=== PATIENT | female | born 1990 | race Caucasian/White ===

== ENCOUNTER 2019-07-16 18:58 | Emergency (ER) | payer BC, OTHER ==
[~2019-07-16] VITALS: Ht 160 cm; Wt 181.4 kg
== END 2019-07-16 21:49 | disposition home or self-care (01) ==
LOC: ED 18:58
DX: S93.402A Sprain of unspecified ligament of left ankle, initial encounter (principal); X50.1XXA Overexertion from prolonged static or awkward postures, initial encounter; Y93.89 Activity, other specified; Y92.89 Other specified places as the place of occurrence of the external cause; Y99.8 Other external cause status

== ENCOUNTER 2020-06-29 21:01 | Inpatient (IN) | payer BC ==
[~2020-06-29] VITALS: Ht 162.5 cm; Wt 182.9 kg
[2020-06-29 21:16] VITALS: BP 149/90
[2020-06-29] MEDS ORDERED: MOVE FREE ULTR1 EAC2 PO (21:20)
[2020-06-29] MEDS ORDERED: SYNTHROID,LEV125 MCG PO (21:20)
[2020-06-29 22:39] LABS: BASO % 0.4 % (0.0-1.0); EOS % 0.6 % (1.0-4.0); HEMATOCRIT 42.8 % (37.0-47.0); LYMPH # 2.2 10*3/uL (1.3-4.4); LYMPH % 45.6 % (27.0-41.0); MEAN CELL VOLUME 82.1 fl (81.0-99.0); MEAN CORPUSCULAR HGB 25.7 pg (27.0-31.0); MEAN CORPUSCULAR HGB CONC 31.3 g/dl (33.0-37.0); MEAN PLATELET VOLUME 9.7 fl (9.6-12.3); MONO # 0.5 10*3/uL (0.1-1.0); MONO % 10.8 % (3.0-9.0); NEUT % 40.8 % (47.0-73.0); PLATELET COUNT AUTOMATED 266 10*3/uL (130-400); RED BLOOD COUNT 5.21 10*6/uL (4.10-5.10); RED CELL DISTRI WIDTH 15.9 % (0-14.5); WHITE BLOOD COUNT 4.9 10*3/uL (4.8-10.8)
[2020-06-29 23:04] LABS: ALKALINE PHOSPHATASE 107 U/L (45-117); BUN 7 mg/dl (7-24); CHLORIDE 108 mmol/L (98-107); CREATININE 0.82 mg/dL (0.55-1.02); POTASSIUM 3.9 mmol/L (3.5-5.1); SGOT/AST 78 IU/L (3-35); SGPT/ALT 109 U/L (12-78); SODIUM 139 mmol/L (136-145); TOTAL PROTEIN 8.4 gm/dL (6.4-8.2)
[2020-06-30] VITALS: BP 137/78
--- NOTE | 2020-06-30 03:15 | NUR ---
TRIED TO CALL INPATIENT NURSE TO SEE IF THEY ARE READY FOR PT WITH NO ANSWER. WILL TRY AGAIN IN 15 MINUTES
--- NOTE | 2020-06-30 03:45 | NUR ---
PT ON EDGE OF BED WITH EMESIS AND DRY HEAVING. PT DIAPHORETIC. PROVIDED COLD WASH CLOTHES.
[2020-06-30 04:27] VITALS: BP 137/78
--- NOTE | 2020-06-30 04:27 | NUR ---
A 30, admitted to , under the services of WILLIAMS Charles DO with a diagnosis of COVID 19. MULTIFOCAL PNEUMONIA. Chief complaint is SOB,FEVER,DAIRRHEA. Patient arrived via stretcher from ER. Monitor applied. Initial assessment completed. Vital signs taken and recorded. WILLIAMS CHARLES DO notified of admission to the unit. Orders received. See assessment for past medical history, medications and allergies. Patient and/or family oriented to unit. [facility] visitation policy reviewed. Clothing/patient valuable form completed. VADIM CADENA
--- NOTE | 2020-06-30 04:30 | NUR ---
PATIENT PULSE OX 88-91% ON RA. ENCOURAGED PATIENT TO WEAR 2L NASAL CANNULA. PATIENT STATED I DONT THINK I NEED THAT RIGHT NOW AND WILL PUT IT ON IF I FEEL I NEED IT. THIS NURSE AGAIN ENCOURAGED AND EXPLAINED TO PATIENT THAT SHE SHOULD WEAR IT. TURNED ON OXYGEN TO 2L AND LEFT NASAL CANNULA BESIDE PATIENT. WILL CONTINUE TO MONITOR.
[2020-06-30] MEDS ORDERED: VITAMIN D350 MCG PO (05:08)
[2020-06-30 06:33] LABS: BASO % 0.4 % (0.0-1.0); EOS % 0.4 % (1.0-4.0); HEMATOCRIT 42.7 % (37.0-47.0); LYMPH # 1.2 10*3/uL (1.3-4.4); LYMPH % 17.6 % (27.0-41.0); MEAN CELL VOLUME 81.8 fl (81.0-99.0); MEAN CORPUSCULAR HGB 25.3 pg (27.0-31.0); MEAN CORPUSCULAR HGB CONC 30.9 g/dl (33.0-37.0); MEAN PLATELET VOLUME 9.8 fl (9.6-12.3); MONO # 0.3 10*3/uL (0.1-1.0); MONO % 4.8 % (3.0-9.0); NEUT # 5.1 10*3/uL (2.3-7.9); NEUT % 75.1 % (47.0-73.0); PLATELET COUNT AUTOMATED 285 10*3/uL (130-400); RED BLOOD COUNT 5.22 10*6/uL (4.10-5.10); WHITE BLOOD COUNT 6.9 10*3/uL (4.8-10.8)
[2020-06-30 06:38] LABS: ALBUMIN 3.1 gm/dl (3.1-4.5); ALKALINE PHOSPHATASE 107 U/L (45-117); BUN 8 mg/dl (7-24); CHLORIDE 108 mmol/L (98-107); CHOLESTEROL 104 mg/dL (<200); HDL CHOLESTEROL 36 mg/dl (40-60); LDH 243 U/L (84-246); LDL CHOLESTEROL 54 mg/dL (9-159); SGOT/AST 63 IU/L (3-35); SGPT/ALT 109 U/L (12-78); SODIUM 137 mmol/L (136-145); TRIGLYCERIDES 72 mg/dl (<150); VLDL CHOLESTEROL 14 mg/dL (6-40)
[2020-06-30 06:46] LABS: FREE T4 1.16 ng/dl (0.76-1.46); TOTAL PROTEIN 8.4 gm/dL (6.4-8.2)
[2020-06-30 09:00] VITALS: BP 123/64
[2020-06-30 09:15] LABS: ABG BASE EXCESS -2.1 mmol/L (-2.0-2.0); ARTERIAL BLOOD GAS PH 7.373 (7.35-7.45)
[2020-06-30 09:17] LABS: ACT PARTIAL THROMBO TIME 27.5 SECONDS (20.0-32.1); INTERNATIONAL NORM RATIO 0.9 (2.0-3.5)
[2020-06-30 09:35] LABS: FERRITIN 83.2 ng/mL (10.0-291.0); VITAMIN D, 25-HYDROXY 37.4 ng/mL (30-100)
[2020-06-30 12:00] VITALS: BP 116/61
[2020-06-30 16:00] VITALS: BP 130/85
[2020-06-30 20:00] VITALS: BP 133/78
[2020-07-01] VITALS: BP 137/71
[2020-07-01 06:47] LABS: BASO % 0.3 % (0.0-1.0); HEMATOCRIT 42.9 % (37.0-47.0); LYMPH # 2.2 10*3/uL (1.3-4.4); MEAN CELL VOLUME 82.3 fl (81.0-99.0); MEAN CORPUSCULAR HGB 25.9 pg (27.0-31.0); MEAN CORPUSCULAR HGB CONC 31.5 g/dl (33.0-37.0); MEAN PLATELET VOLUME 10.2 fl (9.6-12.3); MONO % 10.6 % (3.0-9.0); NEUT # 5.9 10*3/uL (2.3-7.9); NEUT % 63.9 % (47.0-73.0); PLATELET COUNT AUTOMATED 319 10*3/uL (130-400); RED BLOOD COUNT 5.21 10*6/uL (4.10-5.10); WHITE BLOOD COUNT 9.2 10*3/uL (4.8-10.8)
[2020-07-01 07:09] LABS: ALBUMIN 3.2 gm/dl (3.1-4.5); ALKALINE PHOSPHATASE 99 U/L (45-117); BUN 9 mg/dl (7-24); CHLORIDE 109 mmol/L (98-107); CREATININE 0.81 mg/dL (0.55-1.02); LDH 211 U/L (84-246); POTASSIUM 4.1 mmol/L (3.5-5.1); SGOT/AST 40 IU/L (3-35); SGPT/ALT 91 U/L (12-78); SODIUM 138 mmol/L (136-145); TOTAL PROTEIN 8.5 gm/dL (6.4-8.2)
[2020-07-01 08:00] VITALS: BP 138/66
--- NOTE | 2020-07-01 10:00 | NUR ---
PT RELAXED AT THIS TIME - NO S/S DISTRESS NOTED. ON 2L NC. SOB W/ EXERTION BUT DENIES AT REST. LUNGS CLEAR T/O. DENIES NEEDS. CALL LIGHT IN REACH.
[2020-07-01 12:00] VITALS: BP 125/64
[2020-07-01 16:00] VITALS: BP 142/74
--- NOTE | 2020-07-01 19:27 | NUR ---
24 HR CHART CHECK COMPLETE.
[2020-07-01 20:00] VITALS: BP 123/70
[2020-07-02] VITALS: BP 124/87
[2020-07-02 08:00] VITALS: BP 130/74
--- NOTE | 2020-07-02 08:00 | NUR ---
PATIENT SITTING UP IN BED. NO DISTRESS NOTED. POX 97% VIA 2LNC. PT DENIES ANY SOB AT REST. WILL CONTINUE TO MONITOR. VSS. CALL LIGHT WITHIN REACH.
--- NOTE | 2020-07-02 09:31 | NUR ---
Hunter in to talk to patient. Patient states lives at home with . There are 17 steps in the home. Physician: JULIA CONCEPCION [facility] Home health services: NONE Patient's level of ADLs: INDEPENDENT Patient has working utilities: YES DME: CPAP/[facility] Follow-up physician's appointment after d/c: WILL BE MADE BY RN HOSPITALIST COORDINATOR Does patient want to access PORTAL?: NO Discharge plan : THEATRE INSTRUCTOR SPOKE WITH PATIENT AT BEDSIDE. PATIENT RESIDES AT HOME WITH . PATIENT IS INDEPENDENT WITH ADLS/IADLS. PATIENT DRIVES/WORKS. PATIENT DOES USE A CPAP AT NIGHT THROUGH [facility]. [place] IS CURRENTLY ON 2L OXYGEN, BUT NONE AT HOME. PATIENT DOES HAVE [employer] INSURANCE AND IT HAS BEEN UPDATED WITH REGISTRATION. PATIENT WILL HAVE TRANSPORTATION AT DISCHARGE. HER PLAN IS TO RETURN HOME. CASE MANAGEMENT TO FOLLOW. [facility]
[2020-07-02 12:00] VITALS: BP 117/67
--- NOTE | 2020-07-02 15:08 | NUR ---
Patient assessed for home o2. Spo2 98% at rest on 2 l/m hr 56, after 10 minutes on room air Spo2 remained unchanged at 98%. Patient ambulated on room air, Spo2 ranged from 95%-98% during ambulation, hr ranged from 56-64. post ambulation at rest Spo2 98%. Patient did not qualify for o2, RN notified.
[2020-07-02 16:00] VITALS: BP 130/80
[2020-07-02 20:00] VITALS: BP 137/84
[2020-07-03] VITALS: BP 127/83
[2020-07-03 08:00] VITALS: BP 127/62
--- NOTE | 2020-07-03 10:48 | NUR ---
AD COPY WRITER SPOKE WITH THE PATIENT VIA PHONE. PATIENT STATES SHE HAS NO NEEDS AT THIS TIME. SHE DID EXPRESS CONCERN THAT HER MOM IS SET TO TRANSPORT HER HOME, BUT IS GOING TO BE HEADING TO WORK SOON AND WILL NOT GET OFF UNTIL 9PM THIS EVENING. PATIENT STATES HER IS ON A 24HR SHIFT AND CANNOT ASSIST WITH TRANSPORTATION. AD COPY WRITER SPOKE WITH LELIA OMALLEY WHO HAS NOT ROUNDED YET AND SHE IS AWARE OF THIS CONCERN. LITA INFORMED THE [place] OF TRANSPORTATION BEING LATE THIS EVENING IF PATIENT IS TO BE DISCHARGED TODAY.
[2020-07-03 12:00] VITALS: BP 115/69
[2020-07-03] MEDS ORDERED: SYNTHROID,LEV112 MCG PO (12:45)
[2020-07-03] MEDS ORDERED: SYNTHROID137 MCG PO (12:45)
[2020-07-03] MEDS ORDERED: DECADRON4 MG PO (12:49)
--- NOTE | 2020-07-03 15:30 | NUR ---
DISCHARGE INSTRUCTIONS REVIEWED. HEPLOCK AND BATTER OUT DC'D. PRESCRIPTIONS DISCUSSED.
--- NOTE | 2020-07-03 16:14 | NUR ---
PT DISCHARGED AT THIS TIME VIA WHEELCHAIR TO PRIVATE CAR.
== END 2020-07-03 16:14 | disposition home or self-care (01) | DRG 177 ==
LOC: ED 21:01 → EDHOLD 06-30 02:17 → 4E 06-30 02:17
PROVIDERS: Emergency Medicine; Internal Medicine; Student in an Organized Health Care Education/Training Program; ADMIT Internal Medicine; ATTEND Internal Medicine
DX: U07.1 COVID-19 (principal); J96.01 Acute respiratory failure with hypoxia; J18.9 Pneumonia, unspecified organism; E44.0 Moderate protein-calorie malnutrition; Z68.44 Body mass index [BMI] 60.0-69.9, adult; E66.01 Morbid (severe) obesity due to excess calories; E03.9 Hypothyroidism, unspecified; E87.8 Other disorders of electrolyte and fluid balance, not elsewhere classified; R74.01 Elevation of levels of liver transaminase levels; R73.9 Hyperglycemia, unspecified; Z82.49 Family history of ischemic heart disease and other diseases of the circulatory system

== ENCOUNTER 2021-09-01 01:08 | Emergency (ER) | payer BC ==
[~2021-09-01 01:08] MED LIST: DECADRON4 MG PO; MOVE FREE ULTR1 EAC2 PO; SYNTHROID,LEV112 MCG PO; SYNTHROID,LEV125 MCG PO; SYNTHROID137 MCG PO; VITAMIN D350 MCG PO
[2021-09-01 01:41] LABS: BASO % 0.3 % (0.0-1.0); EOS # 0.2 10*3/uL (0.0-0.4); EOS % 1.2 % (1.0-4.0); HEMATOCRIT 42.6 % (37.0-47.0); LYMPH # 2.9 10*3/uL (1.3-4.4); LYMPH % 20.8 % (27.0-41.0); MEAN CELL VOLUME 83.2 fl (81.0-99.0); MEAN CORPUSCULAR HGB 26.6 pg (27.0-31.0); MEAN CORPUSCULAR HGB CONC 31.9 g/dl (33.0-37.0); MEAN PLATELET VOLUME 9.4 fl (9.6-12.3); MONO % 6.8 % (3.0-9.0); NEUT # 9.9 10*3/uL (2.3-7.9); NEUT % 70.3 % (47.0-73.0); PLATELET COUNT AUTOMATED 400 10*3/uL (130-400); RED BLOOD COUNT 5.12 10*6/uL (4.10-5.10); RED CELL DISTRI WIDTH 15.9 % (0-14.5); WHITE BLOOD COUNT 14.1 10*3/uL (4.8-10.8)
[2021-09-01 02:02] LABS: ALKALINE PHOSPHATASE 121 U/L (45-117); BUN 9 mg/dl (7-24); CHLORIDE 106 mmol/L (98-107); CPK 45 U/L (26-192); CREATININE 0.74 mg/dL (0.55-1.02); ETHYL ALCOHOL < 3.0 mg/dl (<3); POTASSIUM 3.8 mmol/L (3.5-5.1); SGOT/AST 15 IU/L (3-35); SGPT/ALT 30 U/L (12-78); SODIUM 139 mmol/L (136-145); TOTAL PROTEIN 8.9 gm/dL (6.4-8.2)
[2021-09-01 02:03] LABS: ACETAMINOPHEN (TYLENOL) < 5.0 ug/ml (10-30)
[2021-09-01 02:28] LABS: BILIRUBIN Negative (Negative); BLOOD Trace-Lysed (Negative); CLARITY Clear (Clear); COLOR Yellow (Yellow); GLUCOSE Negative (Negative); KETONE 1+ (Negative); LEUKO ESTERASE 2+ (Negative); NITRITE Negative (Negative); PH 5.5 (4.5-8.0); SPECIFIC GRAVITY 1.015 (1.001-1.030)
[2021-09-01 02:36] LABS: URINE AMPHETAMINES < 1000 (1000ng/ml); URINE BARBITURATES < 200 (200ng/ml); URINE BENZODIAZEPINES < 200 (200ng/ml); URINE CANNABINOIDS (THC) < 50 (50ng/ml); URINE COCAINE < 300 (300ng/ml); URINE METHADONE < 300 (300ng/ml); URINE OPIATES < 300 (300ng/ml)
[2021-09-01 02:47] LABS: URINE PHENCYCLIDINE < 25 (25ng/ml)
[2021-09-01 02:50] LABS: BACTERIA 2+; EPITHELIAL CELLS 16-20
[2021-09-01] MEDS ORDERED: ESCITALOPRAM OX20 MG PO (15:51)
== END 2021-09-01 18:34 ==
LOC: ED 01:08
PROVIDERS: Emergency Medicine
DX: F43.21 Adjustment disorder with depressed mood (principal); Z20.822 Contact with and (suspected) exposure to COVID-19; E03.9 Hypothyroidism, unspecified; Z79.899 Other long term (current) drug therapy